=== PATIENT | female | born 1955 | race Asian ===

== ENCOUNTER 2020-08-25 17:35 | Inpatient (IN) | payer OTHER, SELFPAY ==
[~2020-08-25] VITALS: Ht 165.1 cm; Wt 74.4 kg
[2020-08-25 18:14] VITALS: BP 216/118
[2020-08-25] MEDS ORDERED: ONDANSETRON 4 MG ODT PO ONE (18:55)
--- NOTE | 2020-08-25 19:13 | NUR ---
SAFIA SWAB DONE. HANDED TO LAB
[2020-08-25 19:23] LABS: BASOPHILS % (AUTO) 0.2 % (0.0-2.0); EOSINOPHILS % (AUTO) 0.2 % (0.0-4.0); HEMATOCRIT 30.7 % (36-48); HEMOGLOBIN 10.3 g/dL (12.0-16.0); LYMPHOCYTES # (AUTO) 1.2 K/uL (2.5-16.5); LYMPHOCYTES % (AUTO) 11.7 % (20.5-51.1); MEAN CORPUSCULAR HEMOGLOBIN 29 pg (27-31); MEAN CORPUSCULAR HGB CONC 34 g/dL (33-37); MEAN CORPUSCULAR VOLUME 86.9 fL (80-94); MONOCYTES % (AUTO) 9.9 % (1.7-9.3); NEUTROPHILS # (AUTO) 7.9 K/uL (1.8-7.7); PLATELET COUNT (AUTO) 380 K/uL (140-450); RED BLOOD CELL COUNT(AUTO) 3.53 MIL/uL (4.20-5.40); RED CELL DISTRIBUTION WIDTH 12.4 % (11.6-13.7); WHITE BLOOD COUNT (AUTO) 10.1 K/uL (4.8-10.8)
--- NOTE | 2020-08-25 19:36 | NUR ---
PT TAKEN TO BED
[2020-08-25 19:38] LABS: ALBUMIN 3.5 g/dL (3.4-5.0); ANION GAP 16.4 (8-16); CARBON DIOXIDE 24.1 mmol/L (21-32); CREATININE 1.6 mg/dL (0.6-1.3); POTASSIUM 3.5 mmol/L (3.5-5.1); TOTAL BILIRUBIN 0.7 mg/dL (0.0-1.0)
--- NOTE | 2020-08-25 19:41 | NUR ---
PT BIB AMBULANCE WITH C/O EPIGASTRIC PAIN AND N/V X 3 DAYS. PT IS AFEBRILE. HAS VOMITED X2 SINCE ARRIVAL TO ER. DENIES SOB. PT SPEAKS ONLY SMALL AMOUNT OF EMGLISH. UNABLE TO REACH FAMILY WITH THE CONTACT NUMBER PROVIDED. NKA HX - DM, HTN
--- NOTE | 2020-08-25 19:54 | NUR ---
RECEIVED CALL FROM LAB, PT IS BONY +
--- NOTE | 2020-08-25 20:26 | NUR ---
BRIAN SIGNED FOR CT SCAN WITH IV CONTRAST. PT GAVE ME THE PHONE NUMBER FOR HER DAUGHTER, UNABLE TO REACH HER. HONORIO [phone]
--- NOTE | 2020-08-25 21:00 | NUR ---
PT NOT ABLE TO TAKE METFORMIN [address] WITH IV CONTRAST. INFORMED BY SET PAINTER
[2020-08-25] MEDS ORDERED: NACL 0.9% 500 ML IV ONE (21:20)
[2020-08-25] MEDS ORDERED: ONDANSETRON 4 MG/2 ML VIAL IVP ONE (22:35)
[2020-08-25] MEDS ORDERED: amLODIPine 5 MG TAB PO ONE (22:45)
[2020-08-26] MEDS ORDERED: DEXAMETHASONE 10 MG/ML VIAL IVP ONE
[2020-08-26] MEDS ORDERED: AZITHROMYCIN 500 MG in DEXTROSE 5% 250 ML IV ONE ×2
[2020-08-26] MEDS ORDERED: cefTRIAXone 500 MG VIAL ONE (01:56)
[2020-08-26] MEDS ORDERED: DEXAMETHASONE 10 MG/ML VIAL ONE (01:56)
--- NOTE | 2020-08-26 02:17 | NUR ---
Jean Claude calixto in [facility] - 08/26/20 at 0223 by [email or web address] Pt report given to JAVIER BAIRD Transfer of care at this time.
--- NOTE | 2020-08-26 02:18 | NUR ---
MOVED FROM TENT TO BED 5
--- NOTE | 2020-08-26 02:20 | NUR ---
PT PLACED ON BEDSIDE MONITOR, O2 AT 2L NC.
[2020-08-26] MEDS ORDERED: AZITHROMYCIN 500 MG INJ VIAL IV ONE (02:29)
[2020-08-26] MEDS ORDERED: DEXTROSE 5% 1,000 ML IV SCH (03:10)
--- NOTE | 2020-08-26 03:52 | NUR ---
PT UP TO BEDSIDE COMMODE. EMPTIED APPROX 300ML OF CLEAR ELIS COLORED URINE
--- NOTE | 2020-08-26 04:12 | NUR ---
PT STARTED HAVING NAUSEA WITH VOMITING AND ABD PAIN. CONTACTED MD RICARDO FOR PRN MEDS FOR THAT AND ALSO PT'S BLOOD PRESSURE IS ELEVATED. WAITING FOR RETURN CALL.
--- NOTE | 2020-08-26 04:43 | NUR ---
CALLED MD RICARDO TO RECEIVE ORDERS FOR N/V, ABD PAIN, AND ELEVATED B/P. ORDERS RECEIVED
[2020-08-26] MEDS ORDERED: hydrALAZINE 20 MG/ML VIAL ONE (04:56)
[2020-08-26] MEDS ORDERED: ONDANSETRON 4 MG/2 ML VIAL ONE ×2 (04:56→04:57)
[2020-08-26] MEDS ORDERED: HYDROcodone/APAP 5/325 MG 1 TAB TAB ONE (04:57)
[2020-08-26] MEDS: HYDROcodone/APAP 5/325 MG 1 TAB TAB PO PRN (05:27)
[2020-08-26] MEDS: ONDANSETRON 4 MG/2 ML VIAL IVP PRN (05:28)
[2020-08-26] MEDS: hydrALAZINE 20 MG/ML VIAL IVP PRN ×2 (05:30→18:20)
--- NOTE | 2020-08-26 05:32 | NUR ---
PT'S B/P IS BETTER, NOW 129/70 FROM 196/100. DENIES NAUSEA, STILL HAVING MILD ABD DISCOMFORT BUT TOLERABLE. PT RESTING IN BED, REMAINS ON MONITOR. WILL CONTINUE TO MONITOR PT
--- NOTE | 2020-08-26 07:23 | NUR ---
Pt report given to NADINE ALBRIGHT. Transfer of care at this time.
--- NOTE | 2020-08-26 08:00 | NUR ---
PT ALERT AND AWAKE, BREATHING EVEN AND UNLABORED. NO DISTRESS NOTED. WILL CONTINUE TO MONITOR.
--- NOTE | 2020-08-26 10:00 | NUR ---
PT ALERT AND AWAKE, BREATHING EVEN AND UNLABORED. NO DISTRESS NOTED. WILL CONTINUE TO MONITOR.
--- NOTE | 2020-08-26 10:02 | NUR ---
PATIENT HAS BEEN SCREENED AND CATEGORIZED HIGH NUTRITION RISK. PATIENT WILL BE SEEN WITHIN 1-2 DAYS OF ADMISSION. 08/27/20 - 08/28/20 LIDA VIDAL MBA, RD
--- NOTE | 2020-08-26 12:00 | NUR ---
PT ALERT AND AWAKE, BREATHING EVEN AND UNLABORED. NO DISTRESS NOTED. WILL CONTINUE TO MONITOR. PT WENT TO RESTROOM BEDSIDE COMMODE
[2020-08-26] MEDS ORDERED: DEXTROSE 50% 50 ML SYR IVP PRN (13:55)
[2020-08-26] MEDS ORDERED: METOPROLOL 5 MG/5 ML VIAL IV PRN (13:55)
--- NOTE | 2020-08-26 14:00 | NUR ---
PT ALERT AND AWAKE, BREATHING EVEN AND UNLABORED. NO DISTRESS NOTED. WILL CONTINUE TO MONITOR.
[2020-08-26] MEDS: ENOXAPARIN 30 MG/0.3 ML SYR SUBQ SCH (14:08)
--- NOTE | 2020-08-26 16:00 | NUR ---
PT ALERT AND AWAKE, BREATHING EVEN AND UNLABORED. NO DISTRESS NOTED. WILL CONTINUE TO MONITOR. BEDSIDE COMMODE WENT RESTROOM
[2020-08-26] MEDS: BLOOD GLUCOSE MONITORING 1 DEV DEV FS SCH ×2 (17:13→21:43)
[2020-08-26] MEDS ORDERED: PROMETHAZINE 25 MG/ML VIAL IM PRN (19:10)
[2020-08-26] MEDS ORDERED: METF1000 PO (19:10)
[2020-08-26] MEDS ORDERED: CARV3.12 PO (19:10)
--- NOTE | 2020-08-26 19:30 | NUR ---
REPORT GIVEN TO ROMY ALBRIGHT, TRANSFER OF CARE AT THIS TIME
--- NOTE | 2020-08-26 19:30 | NUR ---
RECEIVED REPORT FROM NATALEE MCCOY FOR CONTINUATION OF CARE AT THIS TIME.
[2020-08-26] MEDS: DEXT 5% /NACL 0.9% 1,000 ML IV SCH (19:42)
--- NOTE | 2020-08-26 20:00 | NUR ---
PT AWAKE. HOB IN SEMI-FOWLERS POSITION. PT IS CONNECTED TO THE ELECTRONICS WARFARE TECHNICIAN. SAO2@98%. PT IS NOT IN ANY ACUTE DISTRESS AT THIS TIME. BED IS LOCKED AND IN LOWEST POSITION. WILL CONTINUE TO MONITOR.
[2020-08-26] MEDS: FAMOTIDINE 20 MG/2 ML VIAL IV SCH (21:42)
[2020-08-26] MEDS: carvediloL 3.125 MG TAB PO SCH (21:43)
[2020-08-26] MEDS: INSULIN LISPRO SLIDING SCALE 100 UNITS/ML VIAL SUBQ PRN (21:45)
--- NOTE | 2020-08-26 22:00 | NUR ---
PT IS ASLEEP. VISIBLE RISE AND FALL OF CHEST NOTED. HOB IN SEMI-FOWLERS POSITION. PT IS CONNECTED TO THE NEGATIVE CUTTER. SAO2@98%. PT IS NOT IN ANY ACUTE DISTRESS AT THIS TIME. BED IS LOCKED AND IN LOWEST POSITION. WILL CONTINUE TO MONITOR.
--- NOTE | 2020-08-26 22:15 | NUR ---
PT C/O NAUSEA, WILL ADMIN PRN ANTI-NAUSEA MEDICATION.
--- NOTE | 2020-08-27 | NUR ---
PT IS ASLEEP. VISIBLE RISE AND FALL OF CHEST NOTED. HOB IN SEMI-FOWLERS POSITION. PT IS CONNECTED TO THE ASSOCIATE BROKER. SAO2@98%. FLUIDS RUNNING PER MD ORDERS. PT IS NOT IN ANY ACUTE DISTRESS AT THIS TIME. BED IS LOCKED AND IN LOWEST POSITION. WILL CONTINUE TO MONITOR.
[2020-08-27] MEDS: ONDANSETRON 4 MG/2 ML VIAL IVP PRN (00:19)
--- NOTE | 2020-08-27 01:30 | NUR ---
PT ASSISTED TO THE BEDSIDE COMMODE. FANNIE CARE PROVIDED. NEW BED LINENS CHANGED AND PROVIDED. PT IS CONNECTED TO THE WORKFORCE STAFFING ADVISOR. PT ON 2 L NC SAO2@ 97%.
--- NOTE | 2020-08-27 02:00 | NUR ---
REPORT GIVEN TO NATALEE GRAY FOR CONTINUATION OF CARE AT THIS TIME.
--- NOTE | 2020-08-27 02:02 | NUR ---
PT C/O NAUSEA, UNABLE TO ADMIN PRN AT THIS TIME DUE TO MEDICATION ADMIN PARAMETERS.
--- NOTE | 2020-08-27 07:19 | NUR ---
Report received from NATALEE Castellanos, transfer of care at this time.
--- NOTE | 2020-08-27 08:12 | NUR ---
Pt up to bedside commode, VSS, will continue to monitor.
[2020-08-27] MEDS: BLOOD GLUCOSE MONITORING 1 DEV DEV FS SCH ×4 (08:18→20:55)
[2020-08-27] MEDS: INSULIN LISPRO SLIDING SCALE 100 UNITS/ML VIAL SUBQ PRN ×3 (08:19→20:56)
[2020-08-27 08:28] LABS: BASOPHILS % (AUTO) 0.3 % (0.0-2.0); EOSINOPHILS % (AUTO) 0.1 % (0.0-4.0); HEMATOCRIT 27.6 % (36-48); HEMOGLOBIN 9.4 g/dL (12.0-16.0); LYMPHOCYTES # (AUTO) 1.3 K/uL (2.5-16.5); LYMPHOCYTES % (AUTO) 12.8 % (20.5-51.1); MEAN CORPUSCULAR HEMOGLOBIN 30 pg (27-31); MEAN CORPUSCULAR HGB CONC 34 g/dL (33-37); MEAN CORPUSCULAR VOLUME 87.7 fL (80-94); MONOCYTES # (AUTO) 1.1 K/uL (0.8-1.0); MONOCYTES % (AUTO) 11.5 % (1.7-9.3); NEUTROPHILS # (AUTO) 7.4 K/uL (1.8-7.7); NEUTROPHILS % (AUTO) 75.3 % (42.2-75.2); PLATELET COUNT (AUTO) 386 K/uL (140-450); RED BLOOD CELL COUNT(AUTO) 3.14 MIL/uL (4.20-5.40); RED CELL DISTRIBUTION WIDTH 12.8 % (11.6-13.7); WHITE BLOOD COUNT (AUTO) 9.9 K/uL (4.8-10.8)
[2020-08-27 08:48] LABS: ANION GAP 12.8 (8-16); CARBON DIOXIDE 24.7 mmol/L (21-32); POTASSIUM 3.5 mmol/L (3.5-5.1)
[2020-08-27 08:49] LABS: PROTHROMBIN TIME 10.4 secs (10.8-13.4)
[2020-08-27] MEDS: DEXAMETHASONE 4 MG/ML VIAL IVP SCH (10:14)
[2020-08-27] MEDS: ENOXAPARIN 30 MG/0.3 ML SYR SUBQ SCH (10:15)
--- NOTE | 2020-08-27 10:18 | NUR ---
SOCIAL WORK NOTE: Patient's Orientation Unable To Assess Information Provided By DEBORAH ALVARENGA - DAUGHTER Comments SW WAS UNABLE TO MEET PATIENT AT BEDSIDE. SW COMPLETED ASSESSMENT WITH PATIENT'S DAUGHTER. Food Service Order Clerk, Realtionship and Phone Number DEBORAH ALVARENGA DAUGHTER [phone] JUAN ALVARENGA DAUGHTER [phone] Healthcare Power of Agricultural Education Instructor No Does Patient Have a POLST No Identifying Problems No Social Work Triggers Is A Social Work Consult Needed No Mandate Report Filed No Explanation Of Identifying Problems PATIENT IS A 65-YEAR-OLD FEMALE ADMITTED FOR COVID AND HYPOXIA. PATIENT HAS PMHX OF DIABETES AND HYPERTENSION. PER DAUGHTER PATIENT HAS NO HX OF MENTAL HEALTH OR SUBSTANCE ABUSE. Admitted From Home Pre-Admission Level Of Functioning Status Independent/Ambulatory Prior Resources/Services Used In Last 12 Months No Prior Resources Used Prior DME No Prior DME Used Dialysis Comments N/A Living Situation Lives With Family House Patient Had Caregiver No Home Support No Caregiver Issues Financial Issues No Known Financial Issue Referral To The Financial Counselor Needed No Factors/Needs No D/C Needs Identified Pt/Rep Participated In Discharge Plan Yes Patient/Family Agress With Discharge Plan Yes Discharge Plan Comments TENTATIVE DISCHARGE PLAN IS FOR PATIENT TO RETURN HOME. DC Plan Status Initiated
--- NOTE | 2020-08-27 10:29 | NUR ---
Spoke with pharmacy, missing Coreg dose.
[2020-08-27] MEDS: carvediloL 3.125 MG TAB PO SCH ×2 (10:52→20:42)
--- NOTE | 2020-08-27 11:16 | NUR ---
Pt sleeping, equal v isible rise and fall of chest, VSS, will continue to monitor.
[2020-08-27] MEDS: DEXT 5% /NACL 0.9% 1,000 ML IV SCH (12:25)
--- NOTE | 2020-08-27 13:10 | NUR ---
Pt up to commode at bedside.
--- NOTE | 2020-08-27 13:35 | NUR ---
Spoke with Sofia fonseca for pt updates.
--- NOTE | 2020-08-27 15:30 | NUR ---
REC'D REPORT FROM CAYETANO IN ER. PATIENT CC EPIGASTRIC PAIN, NAUSEA, VOMITING; DX: COVID HYPOXIA, INTRACTIBLE VOMITING. PATIENT HAS NOT VOMITTED TODAY. PATIENT AMBULATED ON OWN. PENDING PATIENT TRANSFER TO UNIT.
--- NOTE | 2020-08-27 15:32 | NUR ---
Gave report to NATALEE Roy for pending admission to [facility]. ETA 25minutes.
[2020-08-27 17:00] VITALS: BP_SYST 206; BP_DIAS 83; BP_DIAS 88
--- NOTE | 2020-08-27 17:00 | NUR ---
PATIENT ARRIVED ON UNIT; ADMISSION V/S: TEMP 98.4; RR 22; BP 206/88; SPO2 96% RA; PULSE 89.
--- NOTE | 2020-08-27 17:14 | NUR ---
Patient will be admitted to care of Lit Conway DO. Admited to [facility]. Will go to room 123B. Belongings list completed. Report to NATALEE Winter.
[2020-08-27] MEDS: hydrALAZINE 20 MG/ML VIAL IVP PRN (18:14)
--- NOTE | 2020-08-27 18:21 | NUR ---
ADMINISTERED PRN HYDRAZALINE FOR BP 206/83. PATIENT TOLERATED WELL. MEDICATION EDUCATION PROVIDED. PATIENT VERBALIZED UNDERSTANDING. SAFETY MEASURES IN PLACE. WILL CONT TO MONITOR.
--- NOTE | 2020-08-27 18:34 | NUR ---
ADMINISTERED 2 UNITS PRN INSULIN FOR BG 158. PATIENT TOLERATED WELL. DINNER TRAY SERVED. SAFETY MEASURES IN PLACE. WILL CONT TO MONITOR.
--- NOTE | 2020-08-27 19:15 | NUR ---
ENDORSED PATIENT TO NIGHTSHIFT NURSE FOR CONTINUITY OF CARE
--- NOTE | 2020-08-27 19:16 | NUR ---
RECEIVED REPORT FROM DAY SHIFT NURSE. PT IN BED RESTING. PT AAOX4, AMBULATORY, AND ABLE TO MAKE NEEDS KNOWN. RESPIRATIONS EVEN AND UNLABORED TO ROOM AIR. ABDOMEN IS SOFT AND NON-TENDER. SKIN IS WARM, DRY, AND INTACT. PT WITH IV ACCESS ON LEFT AC G20 PATENT AND INTACT, IVF INFUSING WELL. PT DENIES ANY PAIN OR DISCOMFORT AT THIS TIME. NO REQUESTS MADE. SAFETY MEASURES IN PLACE, DROPLET PRECAUTIONS OBSERVED. CALL LIGHT WITHIN REACH, WILL CONTINUE TO MONITOR.
[2020-08-27 20:00] VITALS: BP 171/75
[2020-08-27] MEDS: FAMOTIDINE 20 MG/2 ML VIAL IV SCH (20:41)
--- NOTE | 2020-08-27 20:55 | NUR ---
VS TAKEN. PT HYPERTENSIVE 171/75, HR 93. SCHEDULED ANTIHYPERTENSIVE MEDICATION GIVEN. PT DENIES ANY DIZZINESS OR ANY DISCOMFORT AT THIS TIME. NO REQUESTS MADE. SAFETY MEASURES IN PLACE. CALL LIGHT WITHIN REACH. WILL CONTINUE TO MONITOR.
--- NOTE | 2020-08-28 00:12 | NUR ---
PT ASLEEP WITH HOB ELEVATED. PT NOT IN DISTRESS. VISIBLE CHEST RISE AND FALL NOTED. NO S/SX OF PAIN OR DISCOMFORT NOTED. WILL CONTINUE TO MONITOR.
--- NOTE | 2020-08-28 01:54 | NUR ---
ASLEEP. NO S/SX OF DISTRESS NOTED. PT KEPT SAFE AND COMFORTABLE. CALL LIGHT WITHIN REACH. WILL CONTINUE TO MONITOR.
[2020-08-28 04:00] VITALS: BP 188/65
[2020-08-28] MEDS: DEXT 5% /NACL 0.9% 1,000 ML IV SCH (04:36)
[2020-08-28] MEDS: HYDROcodone/APAP 5/325 MG 1 TAB TAB PO PRN (05:20)
[2020-08-28] MEDS: hydrALAZINE 20 MG/ML VIAL IVP PRN (05:21)
[2020-08-28 06:30] LABS: BASOPHILS % (AUTO) 0.1 % (0.0-2.0); HEMATOCRIT 28.8 % (36-48); HEMOGLOBIN 9.5 g/dL (12.0-16.0); LYMPHOCYTES # (AUTO) 1.2 K/uL (2.5-16.5); LYMPHOCYTES % (AUTO) 11.6 % (20.5-51.1); MEAN CORPUSCULAR HEMOGLOBIN 29 pg (27-31); MEAN CORPUSCULAR HGB CONC 33 g/dL (33-37); MEAN CORPUSCULAR VOLUME 88.6 fL (80-94); MONOCYTES # (AUTO) 0.9 K/uL (0.8-1.0); MONOCYTES % (AUTO) 8.8 % (1.7-9.3); NEUTROPHILS # (AUTO) 7.9 K/uL (1.8-7.7); NEUTROPHILS % (AUTO) 79.5 % (42.2-75.2); PLATELET COUNT (AUTO) 410 K/uL (140-450); RED BLOOD CELL COUNT(AUTO) 3.24 MIL/uL (4.20-5.40); RED CELL DISTRIBUTION WIDTH 12.6 % (11.6-13.7)
[2020-08-28] MEDS: BLOOD GLUCOSE MONITORING 1 DEV DEV FS SCH ×2 (06:32→13:48)
[2020-08-28] MEDS: INSULIN LISPRO SLIDING SCALE 100 UNITS/ML VIAL SUBQ PRN ×2 (06:33→13:48)
[2020-08-28 06:34] VITALS: BP 135/47
--- NOTE | 2020-08-28 07:30 | NUR ---
RECEIVED REPORT FROM NIGHT NURSE FOR CONTINUITY OF CARE. PT IS STABLE, PT HAS LAC 20G INFUSING D5NS AT 60ML/H. SKIN INTACT. PT ON ROOM AIR, SAFETY MEASURES IN PLACE, CALL LIGHT WITHIN REACH, WILL CONTINUE TO MONITOR
--- NOTE | 2020-08-28 07:44 | NUR ---
ENDORSED TO DAY SHIFT NURSE FOR CONTINUITY OF CARE
[2020-08-28 08:51] LABS: ANION GAP 18.7 (8-16); CARBON DIOXIDE 21.1 mmol/L (21-32); CREATININE 1.7 mg/dL (0.6-1.3); POTASSIUM 3.8 mmol/L (3.5-5.1)
[2020-08-28] MEDS: ENOXAPARIN 30 MG/0.3 ML SYR SUBQ SCH (09:12)
[2020-08-28] MEDS: carvediloL 3.125 MG TAB PO SCH (09:15)
[2020-08-28] MEDS: DEXAMETHASONE 4 MG/ML VIAL IVP SCH (09:17)
--- NOTE | 2020-08-28 09:26 | NUR ---
ADMINISTERED SCHEDULED MEDICATION, MEDICATION EDUCATION PROVIDED. PT TOLERATED WELL. PT IS STABLE, WILL CONTINUE TO MONITOR.
--- NOTE | 2020-08-28 13:50 | NUR ---
ADMINISTERED 10 UNITS OF HUMALOG FOR BLOOD GLUCOSE OF 407, MEDICATION EDUCATION PROVIDED. PT TOLERATED WELL. PT IS STABLE, WILL CONTINUE TO MONITOR.
[2020-08-28] MEDS ORDERED: ONDA4TAB PO (15:36)
--- NOTE | 2020-08-28 16:29 | NUR ---
08/28/20 RD INITIAL ASSESSMENT COMPLETED PLEASE REFER TO NUTRITION ASSESSMENT UNDER CARE ACTIVITY FOR ESTIMATED NUTRITIONAL NEEDS. 1. CONTINUE CLEAR LIQUID DIET TOLERATED 2. RECOMMEND ENSURE CLEAR 3. ADVANCED TO SOFT CCHO DIET WHEN TOLERATED 4. RD TO FOLLOW-UP 2-3 DAYS, HIGH RISK YOVANI SHEPHERD, IBRAHIMA
--- NOTE | 2020-08-28 17:20 | NUR ---
PT RECEIVED DISCHARGED INSTRUCTIONS, DISCHARGED INSTRUCTIONS PROVIDED TO PT'S DAUGHTER JUAN ALVARENGA. PT STABLE, FLU AND PNA UP TO DATE.
== END 2020-08-28 17:20 | disposition home or self-care (01) | DRG 177 ==
LOC: MED 17:35 → MMU 08-26 03:10 → MTU 08-27 14:37
PROVIDERS: ADMIT Hospitalist; ATTEND Hospitalist
DX: U07.1 COVID-19 (principal); N17.0 Acute kidney failure with tubular necrosis; J12.82 Pneumonia due to coronavirus disease 2019; E87.1 Hypo-osmolality and hyponatremia; I16.0 Hypertensive urgency; E11.9 Type 2 diabetes mellitus without complications; D63.8 Anemia in other chronic diseases classified elsewhere; I10 Essential (primary) hypertension; Z79.899 Other long term (current) drug therapy
CPT/HCPCS: 36415; 36600; 71045; 80048; 80053; 82803; 82948; 83036; 83605; 83615; 83690; 84484; 85025; 85379; 85610; 85730; 86140; 93005; 96361; 96365; 96367; 96375; 99285; J0360; J0456; J0696; J1100; J1650; J2405; J3490; J7060; Q0162; Q9967